=== PATIENT | female | born 1990 | race Two or more races ===

== ENCOUNTER 2018-02-06 22:48 | Emergency (ER) | payer OTHER ==
[2018-02-06] MEDS ORDERED: NS 1,000 ML IV ONE (23:04)
[2018-02-06] MEDS ORDERED: RANITIDINE 50 MG/2 ML VIAL IVP ONE (23:04)
--- NOTE | 2018-02-06 23:04 | EDPHY ---
H & P Time Seen by Provider: 02/06/18 22:52 HPI/ROS: CHIEF COMPLAINT: Urticaria, allergic reaction HISTORY OF PRESENT ILLNESS: 27-year-old otherwise healthy female arrives via ambulance complaining of diffuse urticaria which started while she was having dinner. She is visiting this area for business. She denies prior history of similar. Denies anaphylaxis history. Denies chest pain. Denies dyspnea. Denies tonsillar or glossal enlargement. She was given pre-hospital Benadryl 25 mg as well as Solu-Medrol. EMS shows me a photo of the before and after both pre and post Benadryl and there is significant improvement in the patient's facial urticaria. PRIMARY CARE PROVIDER: REVIEW OF SYSTEMS: 10 systems reviewed and negative with the exception of the elements mentioned in the history of present illness PAST MEDICAL & SURGICAL HISTORY: no prior history of anaphylaxis,. She does note history of urticaria with chickpea ingestion. SOCIAL HISTORY: Nonsmoker. Visiting from [place], works for [employer] PHYSICAL EXAM (Prior to examination, patient consented to physical exam, hands were washed and my usual and customary physical exam procedures followed) 1) GENERAL: Well-developed, well-nourished, alert and oriented. Appears to be in no acute distress. 2) HEAD: Normocephalic, atraumatic. Facial urticaria noted. 3) HEENT: Pupils equal, round, reactive to light bilaterally. Sclera anicteric. Nasopharynx, oropharynx, clear, no lesions. Moist Mucous membranes. No tonsillar or glossal enlargement. Airway patent. Ears bilaterally with normal tympanic membranes. 4) NECK: Full range of motion, no meningeal signs. 5) LUNGS: Clear auscultation bilaterally, no wheezes, no rhonchi, no retractions. 6) HEART: Regular rate and rhythm, no murmur, no heave, no gallop. 7) ABDOMEN: No guarding, no rebound, no focal tenderness, negative McBurney's, negative Alvarez's, negative Rovsing's, negative peritoneal sign, 8) MUSCULOSKELETAL: Moving all extremities, no focal areas of tenderness, no obvious trauma. No peripheral edema or discoloration. 9) BACK: No CVA tenderness, no midline vertebral tenderness, no fluctuance, no step-off, no obvious trauma, no visual or palpable abnormality. 10) SKIN: Urticaria to face and neck only. 11) Psychiatric: Patient is oriented X 3, there is no agitation. DIFFERENTIAL DIAGNOSIS: In no particular order including but not limited to urticaria, anaphylaxis, angioedema Constitutional: Initial Vital Signs Temperature (C) 36.9 C 02/06/18 22:53 Heart Rate 112 H 02/06/18 22:53 Respiratory Rate 18 02/06/18 22:53 Blood Pressure 130/93 H 02/06/18 22:53 O2 Sat (%) 98 02/06/18 22:53 O2 Delivery Mode Room Air Allergies/Adverse Reactions: chickpeas Allergy (Uncoded 02/06/18 22:55) Home Medications: Medication Instructions Recorded EPINEPHrine [Epipen 0.3 MG] 0.3 mg IM ONCE #2 syr 02/06/18 MDM/Departure - MDM Medications Given: Discontinued Medications Diphenhydramine HCl (Benadryl Injection) 25 mg IVP EDNOW ONE Stop: 02/06/18 23:05 Last Admin: 02/06/18 23:16 Dose: 25 mg Sodium Chloride (Ns) 1,000 mls @ 0 mls/hr IV ONCE ONE; Wide Open PRN Reason: Protocol Stop: 02/06/18 23:05 Last Admin: 02/06/18 23:16 Dose: 1,000 mls Ranitidine HCl (Zantac) 50 mg IVP EDNOW ONE Stop: 02/06/18 23:05 Last Admin: 02/06/18 23:18 Dose: 50 mg ED Course/Re-evaluation: 11:09 p.m.: Patient received 25 mg of pre-hospital Benadryl as well as Solu- Medrol. Will administer ranitidine and further 25 mg of Benadryl in the ER. Will hold on epinephrine at this time. She has no evidence of airway compromise. Symptoms appear to be limited to urticaria. She will be observed for period of time. Care of patient under supervision of secondary supervising physician Dr More with whom I discussed care. 12:09 p.m.: Re-evaluation, asymptomatic, urticaria resolved. Recommend avoiding allergens. Plan will be discharge with my usual and customary allergic reaction precautions instructions. - Depart Disposition: Home, Routine, Self-Care Clinical Impression: Urticaria Condition: Good Instructions: Urticaria (ED) Additional Instructions: Return to the ER if you develop chest pain, shortness of breath, difficulty swallowing, or any other symptoms that concern you Prescriptions: EPINEPHrine [Epipen 0.3 MG] 0.3 mg IM ONCE #2 syr Referrals: Mandie Jaramillo MD [[facility] [place]] - 2-3 days, call for appt.
[2018-02-07 00:32] VITALS: BP 120/83
== END 2018-02-07 00:32 | disposition home or self-care (01) ==
DX: T78.00XA Anaphylactic reaction due to unspecified food, initial encounter (principal); L50.9 Urticaria, unspecified; E86.9 Volume depletion, unspecified
CPT/HCPCS: 96374; J1200; J2780